=== PATIENT | female | born 1965 | race Caucasian/White ===

== ENCOUNTER 2016-09-09 12:53 | Emergency (ER) | payer OTHER ==
--- NOTE | 2016-09-09 13:51 | ERNOTE ---
Upper Extremity HPI - Narrative Date of Service: 09/09/16 - General Extremities Pain Location: forearm: left Time Seen by Provider: 09/09/16 13:36 Source: patient Exam Limitations: no limitations - Immun/Allergies/Home Medications Immunizations: IMMUNIZATION HX Immunizations Up to Date Yes History of Influenza Vaccine No Hx Pneumococcal Vaccination No Allergies/Adverse Reactions: Allergies Allergy/AdvReac Type Severity Reaction Status Date / Time nitrofurantoin Allergy Mild Swelling Verified 05/08/16 14:21 macrocrystalline (Other) [From Macrodantin] sulfacetamide sodium Allergy Mild Swelling Verified 05/08/16 14:21 [From Sulfamide] (Other) sulfamethoxazole Allergy Mild Itching Verified 05/08/16 14:21 [From Bactrim] trimethoprim [From Bactrim] Allergy Mild Itching Verified 05/08/16 14:21 adhesive AdvReac Mild Other Verified 05/08/16 14:21 Home Medications: HOME MEDICATIONS Cholecalciferol (Vitamin D3) [Vitamin D3] 50,000 unit PO Q7D 03/14/13 [Last Taken Unknown] Cyanocobalamin (Vitamin B-12) [Vitamin B-12] 5,000 mcg SL DAILY 03/14/13 [Last Taken Unknown] Nabumetone 1,000 mg PO BID 03/14/13 [Last Taken 12/23/15 09:00] Beclomethasone Dipropionate [Qvar] 8.7 gm IH 12/23/15 [Last Taken Unknown] Metoprolol Succinate 25 mg PO DAILY 05/08/16 [Last Taken Unknown] Naproxen [Naprosyn] 500 mg PO BID PRN #60 tab 09/09/16 [Last Taken Unknown] oxyCODONE HCL [Oxycodone] 5 mg PO TID PRN 09/09/16 [Last Taken Unknown] - History of Present Illness Narrative: Pt. comes in with L forearm pain and swelling for two days. Two days ago pt. was at this facility for MRA of BLE due to arterial clot and had IV dye injected into this arm. Pt. denies any alleviating factors, aggravating factors , or prehospital treatment. Review of Systems - Review of Systems Constitutional: Present: no symptoms reported. Absent: recent illness, fever, chills, weakness, fatigue, malaise EYE: Present: no symptoms reported ENT: Present: no symptoms reported Respiratory: Present: no symptoms reported. Absent: shortness of breath, cough , wheezing Cardiology: Present: no symptoms reported. Absent: chest pain, palpitations, edema Gastrointestinal/Abdominal: Present: no symptoms reported. Absent: nausea, vomiting, diarrhea, abdominal pain Genitourinary: Present: no symptoms reported Musculoskeletal: Present: no symptoms reported. Absent: back pain, joint pain Skin: Present: lumps - L forearm follows venous pattern, change in color - ecchymosis L forearm Neurological: Present: no symptoms reported. Absent: headache, dizziness/light- headedness, numbness, tingling All Other Systems: All systems neg except as marked - Patient's Past Medical History Patient History - Medical: Anemia, GERD, Osteoarthritis Patient History - Cardiac/Respiratory: Asthma, Hypertension Patient History - Cancer: Other Patient History - Surgical Procedures: Appendectomy, Cancer Surgery, Hysterectomy, Other Patient History - Other: None - Social History Living Situations: alone Psych History: Hx of Anxiety Smoking Status: Former smoker Do you dip or chew tobacco: No Alcohol Use: occasionally Drug Use: none - Immunizations Immunizations Up to Date: Yes Hx Pneumococcal Vaccination: No History of Influenza Vaccine: No Physical Exam - Physical Exam General Appearance: Present: wd/wn, alert, no apparent distress Eye Exam: Normal inspection: bilateral, PERRL: bilateral, EOMI: bilateral Ears, Nose, Throat: Present: normal ENT inspection, hearing grossly normal, normal pharynx Neck: Present: normal inspection, nontender. Absent: lymphadenopathy (R), lymphadenopathy (L) Respiratory: Present: no respiratory distress, normal breath sounds, no accessory muscle use, chest nontender, lungs clear Cardiovascular/Chest: Present: regular rate, rhythm, no murmur, normal peripheral pulses Gastrointestinal/Abdominal: Present: normal bowel sounds, nontender, nondistended, soft, no organomegaly Back Exam: Present: normal inspection, normal range of motion, no CVA tenderness , no vertebral tenderness Extremity Exam: Present: normal inspection, normal range of motion, extremity edema - L forearm, other - tender L forearm Neurological Exam: Present: alert, oriented, normal mood/affect, no motor/ sensory deficits Skin Exam: Present: warm/dry, other - Ecchymosis L hand and forearm. Absent: pallor, skin rash ED Progress - Vital Signs Patient's Vital Signs:: I have reviewed the patient's vital signs. Vital Signs: Vital Signs 09/09/16 13:20 Temperature 35.7 C L Pulse Rate 84 Respiratory 14 Rate Blood Pressure 140/78 O2 Sat by Pulse 97 Oximetry - CT/Ultrasound CT/Ultrasound Narrative: US arterial and venous negative for any thrombosis. Superficial thrombophlebitis noted L forearm. - Progress/Reassessment Chief Complaint: Upper Extremity Injury/Problem Progress:: Unchanged Departure Clinical Impression: Thrombophlebitis - Departure Disposition: Home self-care Condition: Good Instructions: Phlebitis, [id number] Additional Instructions: Please follow up withy primary provider in 2-3 days. Keep arm elevated. Use warm pack or heating pad to area. Referrals: Constanza Arias CNP [Primary Care Provider] - Prescriptions: Naproxen [Naprosyn] 500 mg PO BID PRN #60 tab PRN Reason: Pain
[2016-09-09 16:47] VITALS: BP 140/72
== END 2016-09-09 17:25 | disposition home or self-care (01) ==
LOC: ER 12:53
DX: I80.9 Phlebitis and thrombophlebitis of unspecified site (principal); Z87.891 Personal history of nicotine dependence